=== PATIENT | male | born 1985 | race Caucasian/White ===

== ENCOUNTER → 2019-02-04 09:26 | Outpatient (CLI) | payer OTHER, SELFPAY ==
--- NOTE | 2019-02-04 | DI.RAD.S_ITS ---
PROCEDURE: XR LUMBAR SPINE 2-3V INDICATIONS: LOW BACK PAIN TECHNIQUE: 2 views of the lumbar spine were acquired. COMPARISON: None. FINDINGS: Bones: No fracture or focal osseous destruction. Multilevel degenerative endplate sclerosis and spurring. Diffuse facet arthropathy. Mild narrowing of the L1-L2, L4-L5 and L5-S1 disc spaces. Mild bilateral hip degeneration. Soft tissues: Overlying bowel gas pattern is normal. No suspicious soft tissue calcifications. IMPRESSION: Mild multilevel lumbar disc degeneration and facet arthropathy as above. No fracture Dictated by: Thomas Hall M.D. on 02/04/2019 at 11:06 Approved by: Thomas Hall M.D. on 02/04/2019 at 11:07
== END ==
PROVIDERS: PCP Family Medicine; Visit Provider Chiropractor
DX: M54.5 Low back pain (principal); M51.36 Other intervertebral disc degeneration, lumbar region; M47.816 Spondylosis without myelopathy or radiculopathy, lumbar region; M48.061 Spinal stenosis, lumbar region without neurogenic claudication; M48.07 Spinal stenosis, lumbosacral region; M16.0 Bilateral primary osteoarthritis of hip
CPT/HCPCS: 72100

== ENCOUNTER → 2019-02-18 14:06 | Outpatient (CLI) | payer OTHER, SELFPAY ==
[2019-02-18 14:28] LABS: Hematocrit 41.1 % (41-53); Hemoglobin 14.3 g/dL (13.5-17.5); Mean Corpuscular HGB Conc 34.8 % (30-36); Mean Corpuscular Hemoglobin 31.1 PG (26-34); Mean Corpuscular Volume 89.4 fL (80-100); Platelet Count 214 X10^3/uL (150-400); Red Cell Distribution Width 13.1 % (11.6-14.8); White Blood Cell Count 7.6 X10^3/uL (4.5-11.0)
[2019-02-18 14:45] LABS: Alanine Aminotransferase 28 IU/L (21-72); Albumin 4.8 g/dL (3.5-5.0); Albumin Globulin Ratio 1.7 (1.0-2.8); Alkaline Phosphatase 77 U/L (38-126); Aspartate Aminotransferase 35 IU/L (17-59); BUN Creatinine Ratio 12.7 (6-22); Bilirubin Total 0.5 mg/dL (0.2-1.3); Blood Urea Nitrogen 14 mg/dL (9-20); Calcium 9.8 mg/dL (8.4-10.2); Carbon Dioxide 29 mmol/L (22-32); Chloride 100 mmol/L (98-107); Estimated Glomerular Filt Rate > 60.0 mL/min (>60); Globulin 2.8 g/dL (1.7-4.1); Glucose 96 mg/dL (70-100); HEMOLYSIS < 15 (0-50); Sodium 139 mmol/L (137-145); Total Protein 7.6 g/dL (6.3-8.2)
== END ==
PROVIDERS: PCP Family Medicine; Visit Provider Nurse Practitioner Family
DX: Z00.00 Encounter for general adult medical examination without abnormal findings (principal)
CPT/HCPCS: 36415; 80053; 85027

== ENCOUNTER 2019-05-09 19:45 | Emergency (ER) | payer OTHER, SELFPAY ==
[2019-05-09 19:48] VITALS: BP 145/80; PULSE 90; RESP 18; TEMP 36.3; O2SAT 97; BMI 27.1
--- NOTE | 2019-05-09 19:51 | DI.RAD.S_ITS ---
PROCEDURE: XR TIBIA FIBULA RT 2V INDICATIONS: Fall TECHNIQUE: 2 views of the tibia and fibula were acquired. COMPARISON: None. FINDINGS: Bones: No fractures or dislocations. No suspicious bony lesions. Soft tissues: No suspicious soft tissue calcifications or masses. IMPRESSION: No fractures. Dictated by: Estela Barcenas M.D. on 05/09/2019 at 20:13 Approved by: Estela Barcenas M.D. on 05/09/2019 at 20:14
--- NOTE | 2019-05-09 20:23 | DI.RAD.S_ITS ---
PROCEDURE: XR HAND LT MIN 3V INDICATIONS: L hand/wrist pain on the base of 5th finger TECHNIQUE: 3 views of the hand(s) acquired. COMPARISON: None. FINDINGS: Bones: No fractures or dislocations. Carpal bones are normally aligned. No suspicious bony lesions. Soft tissues: No suspicious soft tissue calcifications. IMPRESSION: No fracture or dislocation. Dictated by: Estela Barcenas M.D. on 05/09/2019 at 21:24 Approved by: Estela Barcenas M.D. on 05/09/2019 at 21:25
--- NOTE | 2019-05-09 20:27 | ED.FALL ---
HPI - Fall <Christiano Boswelljessika [facility] - Last Filed: 05/09/19 21:45> General Chief Complaint: Fall Stated Complaint: LEFT LEG LACERATION Time Seen by Provider: 05/09/19 19:50 Source: patient Mode of arrival: ambulatory Limitations: no limitations History of Present Illness HPI Narrative: This is a 33-year-old and an [employer], nonsmoker, who had injured during work prior coming in to ED. He reports was chasing a suspect and fell over a mcbride and landed onto of her on his left fiore. He reports left fiore pain, left palm pain with abrasion. He reports had neck strain and discomfort this morning from lifting weight and now is worse after the fall. He denies tingling or numbness to upper extremities. He is able to bear his weight and ambulatory. He is not sure of last tetanus immunization. Related Data Previous Rx's Medication Instructions Recorded famotidine 20 mg tablet 20 mg PO BEDTIME #60 tab 01/11/19 naproxen 500 mg tablet 500 mg PO BID PRN #60 tab 01/11/19 Allergies Allergy/AdvReac Type Severity Reaction Status Date / Time No Known Drug Allergies Allergy Verified 05/09/19 19:47 Review of Systems <Christiano AshrafAdarshjessika [facility] Last Filed: 05/09/19 21:45> Review of Systems General: Denies fever, chills, fatigue, malaise, sweats. HEENT: Denies sinus pain, ear pain, sore throat, difficulty swallowing, dizziness. Reports neck muscle pain. Respiratory: Denies dyspnea, cough, wheezing, hemoptysis, sputum. Cardiovascular: Denies chest pain, palpitations, orthopnea, edema. Gastrointestinal: Denies nausea, vomiting, abdominal pain, diarrhea, constipation, melena. : Denies dysuria, frequency, incontinence, hematuria, urinary retention. Musculoskeletal: See HPI Skin: See HPI Neurologic: Denies weakness, headache, numbness, change in speech, confusion, seizures, incoordination. Psychiatric: No concerning psychosocial issues. 12-point review of systems is negative except for those stated above. Exam <Christiano Ashraf-Adarshjessika [facility] Last Filed: 05/09/19 21:45> Narrative Exam Narrative: GEN: Alert, oriented x 3, well appearing and nourished, and in no acute distress. Head: Normal cephalic, atraumatic. No scalp or temporal tenderness, palpable mass or rash. EYES: Pupils are equal, round, and reactive to light and accommodation. Extraocular muscles are intact bilaterally. There is no subconjunctival hemorrhage, exudate and sclera non-icteric. ENT: Nose without bleeding, purulent discharge. Mucous membrane moist, airway patent. Neck: Trachea in midline. No JVD. Supple and no meningeal signs. Reports pain with active ROM such as flexion, extension, rotation. CARDIAC: No peripheral edema, cyanosis or pallor. Capillary refill is less than 2 seconds. RESPIRATORY: No cough, wheezes. No stridor, respiratory distress, increase work of breathing, or accessary muscle used. ABD: No-obese, non-distended. EXT: Full painless ROM of all extremities with no loss of sensation, strength, effusion. L dorado aspect of base of 5th metacarpal region with ecchymosis and mild edema. SKIN: 10 cm, linear superficial abrasion on L fiore. L dorado base of 5th metacarpal with small superfical abrasion. Warm, dry, normal color for patient. NEUROLOGICAL: Alert and oriented to place, time and person. Sensation and motor function intact bilaterally. No facial droops, dysphasia. PSYCHIATRIC: Good judgement and reason, without hallucinations, abnormal affect or abnormal behaviors during the examination. Initial Vital Signs Initial Vital Signs: Vital Signs Temperature 97.4 F L 05/09/19 19:48 Pulse Rate 90 05/09/19 19:48 Respiratory Rate 18 05/09/19 19:48 Blood Pressure 145/80 H 05/09/19 19:48 Pulse Oximetry 97 05/09/19 19:48 <Femi Brothers DO - Last Filed: 05/10/19 06:00> Initial Vital Signs Initial Vital Signs: Vital Signs Temperature 97.4 F L 05/09/19 19:48 Pulse Rate 90 05/09/19 19:48 Respiratory Rate 18 05/09/19 19:48 Blood Pressure 145/80 H 05/09/19 19:48 Pulse Oximetry 97 05/09/19 19:48 PFS <GERARDO Waldron - Last Filed: 05/09/19 21:45> Medical History Back problem (Chronic ~2007) Chronic back pain (Chronic ~2007) Eczema (Chronic ~2007) Hay fever (Chronic ~1989) Hearing loss (Chronic ~2009) Herniated disc (Chronic ~2007) Plantar warts (Chronic ~2009) Tinnitus (Chronic ~2009) Vision disorder (Chronic) Chicken pox (Resolved ~1986) Surgical History History of vasectomy (Resolved ~08/2015) Family History (Updated 03/05/19 @ 21:39 by Dianna Ingram) Father Mental health problem Grandfather Prostate cancer Family/Other Mental health problem Social History Smoking Status: Never smoker second hand exposure: Yes alcohol intake: current (1-2 beers a day) substance use type: does not use Family History Father Mental health problem Grandfather Prostate cancer Family/Other Mental health problem Social History Smoking Status: Never smoker second hand exposure: Yes alcohol intake: current (1-2 beers a day) substance use type: does not use Scores <GERARDO Waldron - Last Filed: 05/09/19 21:45> Nexus Score for C-Spine Focal Neurologic deficit present: No Midline spinal tenderness present: No Altered level of conciousness present: No Intoxication present: No Distracting Injury Present: Yes (L fiore abrasion and L palm contusion) Nexus Criteria for C-spine: 1 Course <GERARDO Waldron - Last Filed: 05/09/19 21:45> Orders Ordered: Discontinued Medications Bacitracin (Bacitracin) 1 applic TOP NOW ONE Stop: 05/09/19 20:26 Last Admin: 05/09/19 20:39 Dose: 1 applic Diphtheria/Tetanus/Acell Pertussis (Adacel) 0.5 ml IM .ONCE ONE Stop: 05/09/19 20:26 Last Admin: 05/09/19 20:38 Dose: 0.5 ml Vital Signs - 8 hr 05/09/19 19:48 Temperature 97.4 F L Pulse Rate 90 Respiratory Rate 18 Blood Pressure 145/80 H Pulse Oximetry 97 <Femi Brothers DO - Last Filed: 05/10/19 06:00> Orders Ordered: Discontinued Medications Bacitracin (Bacitracin) 1 applic TOP NOW ONE Stop: 05/09/19 20:26 Last Admin: 05/09/19 20:39 Dose: 1 applic Diphtheria/Tetanus/Acell Pertussis (Adacel) 0.5 ml IM .ONCE ONE Stop: 05/09/19 20:26 Last Admin: 05/09/19 20:38 Dose: 0.5 ml Vital Signs - 8 hr 05/09/19 19:48 Temperature 97.4 F L Pulse Rate 90 Respiratory Rate 18 Blood Pressure 145/80 H Pulse Oximetry 97 MDM - Fall <GERARDO Waldron - Last Filed: 05/09/19 21:45> Differential Diagnosis Likely other (Abrasion on left palm, abrasion on left lower extremity, contusion on left palm, cervical strain, fracture on left hand, fracture of left lower extremity) Medical Records Attestation: I reviewed the patient's medical records. Imaging Data XR-tib/fib L side: Radiologist's impression: [place] [address] XRay Report Signed Patient: Alex Calloway JMR#: [id number] : 1985Acct:[id number] Age/Sex: 33 / MDate of Service: 05/09/19 Loc: ED Accession Number: [id number] Procedure: XR tibia fibula LT 2V Ordering Provider: Femi Brothers D.O. PROCEDURE: XR TIBIA FIBULA RT 2V INDICATIONS: Fall TECHNIQUE: 2 views of the tibia and fibula were acquired. COMPARISON: None. FINDINGS: Bones: No fractures or dislocations. No suspicious bony lesions. Soft tissues: No suspicious soft tissue calcifications or masses. IMPRESSION: No fractures. Dictated by: Estela Barcenas M.D. on 05/09/2019 at 20:13 Approved by: Estela Barcenas M.D. on 05/09/2019 at 20:14 XR-hand L: Radiologist's impression: 10 GERARDO Waldron Find Patient Imaging BrodieAlex Castro 33 M 1985 ACTIVITY DATE EXAM STATUS AUTHOR 08/05/19 20:23 Signed Joana Barcenas 05/09/19 19:51 Signed Swapna,[address] [address] XRay Report Signed Patient: Alex Calloway JMR#: [id number] : 1985Acct:[id number] Age/Sex: 33 / MDate of Service: 05/09/19 Loc: ED Accession Number: [id number] Procedure: XR hand LT min 3V Ordering Provider: Christiano Jones PROCEDURE: XR HAND LT MIN 3V INDICATIONS: L hand/wrist pain on the base of 5th finger TECHNIQUE: 3 views of the hand(s) acquired. COMPARISON: None. FINDINGS: Bones: No fractures or dislocations. Carpal bones are normally aligned. No suspicious bony lesions. Soft tissues: No suspicious soft tissue calcifications. IMPRESSION: No fracture or dislocation. Dictated by: Estela Barcenas M.D. on 05/09/2019 at 21:24 Approved by: Estela Barcenas M.D. 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 He reports he was chasing a suspect, fell over a mcbride and onto a curb of the parking lot and landed on his left lower extremity and left palm. There was a long, 10 cm, superficial abrasion left fiore and small contusion and abrasion of left palm on the base of 5th metacarpal. He denies any other injuries and denies pain in the knee, ankle, hip, head. The wound was cleaned with water and Hibiclens. Dressed with bacitracin and gauze. Tdap vaccination was updated since the patient was unable to recall and his immunization record was not available in electronic medical record. X-ray was obtained on left tib-fib and left hand. There was no fracture, dislocation or bony lesions in left tib-fib. No fractures or dislocations were noted on left hand x-ray. The patient will follow up with his primary care provider MONICA Lares and he has an appointment. The patient will be released with the light duty for the day and he will be working regular duty from 05/10/19. The patient was advised to use RICE therapy and take [id number] Tylenol and/or Motrin for pain and inflammation as needed. Patient has no further questions at this time and agrees with treatment plan. Discharge Plan Departure Patient Disposition: Home Clinical Impression: Abrasion Contusion Qualifiers: Encounter type: initial encounter Contusion area: hand Laterality: left Qualified Code(s): S60.222A - Contusion of left hand, initial encounter Cervical strain Qualifiers: Encounter type: initial encounter Qualified Code(s): S16.1XXA - Strain of muscle, fascia and tendon at neck level, initial encounter Discharge Date/Time: 05/09/19 21:50 Interventions: ED Discharge Assessment Last Done: 05/09/19 21:49 Instructions: DI for Contusion, DI for Cervical Muscle Strain, DI for Abrasion Activity Restrictions/Additional Instructions: You have been diagnosed with [contusion and abrasion on left lower leg and left hand, cervical strain. There was no fracture, dislocation, acute findings in left lower leg or left hand] What to do: *Take your medications as directed. Please use [id number] Tylenol and/or Motrin as needed for pain and inflammation. Please use ice pack on contused area for pain and swelling. *Follow up with your primary care provider in 2-3 days, call for an appointment. Let them know you were seen in the ED and that we asked you to be seen in follow up. *Return to ED if you have any new, worsening, or concerning symptoms, such as [worsening pain, redness, swelling, tingling/numbness/weakness to extremities, prolonged discharge, warm to touch or fever or any other acute concerns. Prescriptions: No Action naproxen 500 mg tablet 500 mg PO BID PRN (Reason: pain) Qty: 60 RF: 1 famotidine 20 mg tablet 20 mg PO BEDTIME Qty: 60 RF: 1 Referrals: Zeeshan Lares ARNP [[employer]] - <Femi Brothers DO - Last Filed: 05/10/19 06:00> [facility] Attestation: I was immediately available in the department for consultation. Documentation has been reviewed. I agree with assessment and plan.
--- NOTE | 2019-05-09 20:31 | ED_ITS ---
HPI - Fall <Christiano Boswelljessika [facility] - Last Filed: 05/09/19 21:45> General Chief Complaint: Fall Stated Complaint: LEFT LEG LACERATION Time Seen by Provider: 05/09/19 19:50 Source: patient Mode of arrival: ambulatory Limitations: no limitations History of Present Illness HPI Narrative: This is a 33-year-old and an [employer], nonsmoker, who had injured during work prior coming in to ED. He reports was chasing a suspect and fell over a mcbride and landed onto of her on his left fiore. He reports left fiore pain, left palm pain with abrasion. He reports had neck strain and discomfort this morning from lifting weight and now is worse after the fall. He denies tingling or numbness to upper extremities. He is able to bear his weight and ambulatory. He is not sure of last tetanus immunization. Related Data Previous Rx's Medication Instructions Recorded famotidine 20 mg tablet 20 mg PO BEDTIME #60 tab 01/11/19 naproxen 500 mg tablet 500 mg PO BID PRN #60 tab 01/11/19 Allergies Allergy/AdvReac Type Severity Reaction Status Date / Time No Known Drug Allergies Allergy Verified 05/09/19 19:47 Review of Systems <Christiano AshrafAdarshjessika [facility] Last Filed: 05/09/19 21:45> Review of Systems General: Denies fever, chills, fatigue, malaise, sweats. HEENT: Denies sinus pain, ear pain, sore throat, difficulty swallowing, dizziness. Reports neck muscle pain. Respiratory: Denies dyspnea, cough, wheezing, hemoptysis, sputum. Cardiovascular: Denies chest pain, palpitations, orthopnea, edema. Gastrointestinal: Denies nausea, vomiting, abdominal pain, diarrhea, constipation, melena. : Denies dysuria, frequency, incontinence, hematuria, urinary retention. Musculoskeletal: See HPI Skin: See HPI Neurologic: Denies weakness, headache, numbness, change in speech, confusion, seizures, incoordination. Psychiatric: No concerning psychosocial issues. 12-point review of systems is negative except for those stated above. Exam <Christiano Ashraf-Adarshjessika [facility] Last Filed: 05/09/19 21:45> Narrative Exam Narrative: GEN: Alert, oriented x 3, well appearing and nourished, and in no acute distress. Head: Normal cephalic, atraumatic. No scalp or temporal tenderness, palpable mass or rash. EYES: Pupils are equal, round, and reactive to light and accommodation. Extraocular muscles are intact bilaterally. There is no subconjunctival hemorrhage, exudate and sclera non-icteric. ENT: Nose without bleeding, purulent discharge. Mucous membrane moist, airway patent. Neck: Trachea in midline. No JVD. Supple and no meningeal signs. Reports pain with active ROM such as flexion, extension, rotation. CARDIAC: No peripheral edema, cyanosis or pallor. Capillary refill is less than 2 seconds. RESPIRATORY: No cough, wheezes. No stridor, respiratory distress, increase work of breathing, or accessary muscle used. ABD: No-obese, non-distended. EXT: Full painless ROM of all extremities with no loss of sensation, strength, effusion. L dorado aspect of base of 5th metacarpal region with ecchymosis and mild edema. SKIN: 10 cm, linear superficial abrasion on L fiore. L dorado base of 5th metacarpal with small superfical abrasion. Warm, dry, normal color for patient. NEUROLOGICAL: Alert and oriented to place, time and person. Sensation and motor function intact bilaterally. No facial droops, dysphasia. PSYCHIATRIC: Good judgement and reason, without hallucinations, abnormal affect or abnormal behaviors during the examination. Initial Vital Signs Initial Vital Signs: Vital Signs Temperature 97.4 F L 05/09/19 19:48 Pulse Rate 90 05/09/19 19:48 Respiratory Rate 18 05/09/19 19:48 Blood Pressure 145/80 H 05/09/19 19:48 Pulse Oximetry 97 05/09/19 19:48 <Femi Brothers DO - Last Filed: 05/10/19 06:00> Initial Vital Signs Initial Vital Signs: Vital Signs Temperature 97.4 F L 05/09/19 19:48 Pulse Rate 90 05/09/19 19:48 Respiratory Rate 18 05/09/19 19:48 Blood Pressure 145/80 H 05/09/19 19:48 Pulse Oximetry 97 05/09/19 19:48 PFS <GERARDO Waldron - Last Filed: 05/09/19 21:45> Medical History Back problem (Chronic ~2007) Chronic back pain (Chronic ~2007) Eczema (Chronic ~2007) Hay fever (Chronic ~1989) Hearing loss (Chronic ~2009) Herniated disc (Chronic ~2007) Plantar warts (Chronic ~2009) Tinnitus (Chronic ~2009) Vision disorder (Chronic) Chicken pox (Resolved ~1986) Surgical History History of vasectomy (Resolved ~08/2015) Family History (Updated 03/05/19 @ 21:39 by Dianna Ingram) Father Mental health problem Grandfather Prostate cancer Family/Other Mental health problem Social History Smoking Status: Never smoker second hand exposure: Yes alcohol intake: current (1-2 beers a day) substance use type: does not use Family History Father Mental health problem Grandfather Prostate cancer Family/Other Mental health problem Social History Smoking Status: Never smoker second hand exposure: Yes alcohol intake: current (1-2 beers a day) substance use type: does not use Scores <GERARDO Waldron - Last Filed: 05/09/19 21:45> Nexus Score for C-Spine Focal Neurologic deficit present: No Midline spinal tenderness present: No Altered level of conciousness present: No Intoxication present: No Distracting Injury Present: Yes (L fiore abrasion and L palm contusion) Nexus Criteria for C-spine: 1 Course <GERARDO Waldron - Last Filed: 05/09/19 21:45> Orders Ordered: Discontinued Medications Bacitracin (Bacitracin) 1 applic TOP NOW ONE Stop: 05/09/19 20:26 Last Admin: 05/09/19 20:39 Dose: 1 applic Diphtheria/Tetanus/Acell Pertussis (Adacel) 0.5 ml IM .ONCE ONE Stop: 05/09/19 20:26 Last Admin: 05/09/19 20:38 Dose: 0.5 ml Vital Signs - 8 hr 05/09/19 19:48 Temperature 97.4 F L Pulse Rate 90 Respiratory Rate 18 Blood Pressure 145/80 H Pulse Oximetry 97 <Femi Brothers DO - Last Filed: 05/10/19 06:00> Orders Ordered: Discontinued Medications Bacitracin (Bacitracin) 1 applic TOP NOW ONE Stop: 05/09/19 20:26 Last Admin: 05/09/19 20:39 Dose: 1 applic Diphtheria/Tetanus/Acell Pertussis (Adacel) 0.5 ml IM .ONCE ONE Stop: 05/09/19 20:26 Last Admin: 05/09/19 20:38 Dose: 0.5 ml Vital Signs - 8 hr 05/09/19 19:48 Temperature 97.4 F L Pulse Rate 90 Respiratory Rate 18 Blood Pressure 145/80 H Pulse Oximetry 97 MDM - Fall <GERARDO Waldron - Last Filed: 05/09/19 21:45> Differential Diagnosis Likely other (Abrasion on left palm, abrasion on left lower extremity, contusion on left palm, cervical strain, fracture on left hand, fracture of left lower extremity) Medical Records Attestation: I reviewed the patient's medical records. Imaging Data XR-tib/fib L side: Radiologist's impression: [place] [address] XRay Report Signed Patient: Alex Calloway JMR#: [id number] : 1985Acct:[id number] Age/Sex: 33 / MDate of Service: 05/09/19 Loc: ED Accession Number: [id number] Procedure: XR tibia fibula LT 2V Ordering Provider: Femi Brothers D.O. PROCEDURE: XR TIBIA FIBULA RT 2V INDICATIONS: Fall TECHNIQUE: 2 views of the tibia and fibula were acquired. COMPARISON: None. FINDINGS: Bones: No fractures or dislocations. No suspicious bony lesions. Soft tissues: No suspicious soft tissue calcifications or masses. IMPRESSION: No fractures. Dictated by: Estela Barcenas M.D. on 05/09/2019 at 20:13 Approved by: Estela Barcenas M.D. on 05/09/2019 at 20:14 XR-hand L: Radiologist's impression: 10 GERARDO Waldron Find Patient Imaging BrodieAlex Castro 33 M 1985 ACTIVITY DATE EXAM STATUS AUTHOR 08/05/19 20:23 Signed Joana Barcenas 05/09/19 19:51 Signed Swapna,[address] [address] XRay Report Signed Patient: Alex Calloway JMR#: [id number] : 1985Acct:[id number] Age/Sex: 33 / MDate of Service: 05/09/19 Loc: ED Accession Number: [id number] Procedure: XR hand LT min 3V Ordering Provider: Christiano Jones PROCEDURE: XR HAND LT MIN 3V INDICATIONS: L hand/wrist pain on the base of 5th finger TECHNIQUE: 3 views of the hand(s) acquired. COMPARISON: None. FINDINGS: Bones: No fractures or dislocations. Carpal bones are normally aligned. No suspicious bony lesions. Soft tissues: No suspicious soft tissue calcifications. IMPRESSION: No fracture or dislocation. Dictated by: Estela Barcenas M.D. on 05/09/2019 at 21:24 Approved by: Estela Barcenas M.D. 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 He reports he was chasing a suspect, fell over a mcbride and onto a curb of the parking lot and landed on his left lower extremity and left palm. There was a long, 10 cm, superficial abrasion left fiore and small contusion and abrasion of left palm on the base of 5th metacarpal. He denies any other injuries and denies pain in the knee, ankle, hip, head. The wound was cleaned with water and Hibiclens. Dressed with bacitracin and gauze. Tdap vaccination was updated since the patient was unable to recall and his immunization record was not available in electronic medical record. X-ray was obtained on left tib-fib and left hand. There was no fracture, dislocation or bony lesions in left tib-fib. No fractures or dislocations were noted on left hand x-ray. The patient will follow up with his primary care provider MONICA Lares and he has an appointment. The patient will be released with the light duty for the day and he will be working regular duty from 05/10/19. The patient was advised to use RICE therapy and take [id number] Tylenol and/or Motrin for pain and inflammation as needed. Patient has no further questions at this time and agrees with treatment plan. Discharge Plan Departure Patient Disposition: Home Clinical Impression: Abrasion Contusion Qualifiers: Encounter type: initial encounter Contusion area: hand Laterality: left Qualified Code(s): S60.222A - Contusion of left hand, initial encounter Cervical strain Qualifiers: Encounter type: initial encounter Qualified Code(s): S16.1XXA - Strain of muscle, fascia and tendon at neck level, initial encounter Discharge Date/Time: 05/09/19 21:50 Interventions: ED Discharge Assessment Last Done: 05/09/19 21:49 Instructions: DI for Contusion, DI for Cervical Muscle Strain, DI for Abrasion Activity Restrictions/Additional Instructions: You have been diagnosed with [contusion and abrasion on left lower leg and left hand, cervical strain. There was no fracture, dislocation, acute findings in left lower leg or left hand] What to do: *Take your medications as directed. Please use [id number] Tylenol and/or Motrin as needed for pain and inflammation. Please use ice pack on contused area for pain and swelling. *Follow up with your primary care provider in 2-3 days, call for an appointment. Let them know you were seen in the ED and that we asked you to be seen in follow up. *Return to ED if you have any new, worsening, or concerning symptoms, such as [worsening pain, redness, swelling, tingling/numbness/weakness to extremities, prolonged discharge, warm to touch or fever or any other acute concerns. Prescriptions: No Action naproxen 500 mg tablet 500 mg PO BID PRN (Reason: pain) Qty: 60 RF: 1 famotidine 20 mg tablet 20 mg PO BEDTIME Qty: 60 RF: 1 Referrals: Zeeshan Lares ARNP [[employer]] - <Femi Brothers DO - Last Filed: 05/10/19 06:00> [facility] Attestation: I was immediately available in the department for consultation. Documentation has been reviewed. I agree with assessment and plan.
[2019-05-09] MEDS: TET,DIPH,PERTUSS(ACELL),VAC/PF 0.5 ML SYRINGE IM (20:38)
[2019-05-09] MEDS: BACITRACIN OINT 0.9 GM PCKT 1 APPLIC TOP (20:39)
--- NOTE | 2019-05-09 20:51 | PC.NURSE ---
wounds cleansed leg and hand, right side/ telfa and kerlex on leg post bactitracin, and l hand cleansed and bacitrain and bandaide applied
== END 2019-05-09 21:50 | disposition home or self-care (01) ==
PROVIDERS: Emergency Provider Nurse Practitioner Family; PCP Family Medicine
DX: S80.812A Abrasion, left lower leg, initial encounter (principal); S60.222A Contusion of left hand, initial encounter; S16.1XXA Strain of muscle, fascia and tendon at neck level, initial encounter; W01.0XXA Fall on same level from slipping, tripping and stumbling without subsequent striking against object, initial encounter; Y99.0 Civilian activity done for income or pay; Z23 Encounter for immunization
CPT/HCPCS: 73130; 73590; 90471; 99283; 90715

== ENCOUNTER → 2019-07-07 14:45 | Outpatient (CLI) | payer OTHER, SELFPAY | PROVIDERS: PCP Family Medicine | DX: Z23 Encounter for immunization (principal) | CPT/HCPCS: 90471; 90686 ==

== ENCOUNTER 2020-02-11 19:17 | Emergency (ER) | payer OTHER, SELFPAY ==
[2020-02-11 19:20] VITALS: BP 145/80; PULSE 99; RESP 22; TEMP 36.9; O2SAT 99
--- NOTE | 2020-02-11 19:22 | DI.CT.S_ITS ---
PROCEDURE: CT HEAD/BRAIN WO CON INDICATIONS: fall head injury TECHNIQUE: Noncontrast 4.5 mm thick angled axial sections acquired from the foramen magnum to the vertex, with coronal and sagittal reformats. For radiation dose reduction, the following was used: automated exposure control, adjustment of mA and/or kV according to patient size. COMPARISON: None. FINDINGS: Image quality: Excellent. CSF spaces: Basal cisterns are patent. No extra-axial fluid collections. Ventricles are normal in size and shape. Brain: No midline shift. No intracranial masses or hemorrhage. Kelly-white matter interface is normal. Skull and face: There is a small right parietal subgaleal hematoma. Calvarium and visualized facial bones are intact, without suspicious lesions. Sinuses: Visualized sinuses and mastoids are clear. IMPRESSION: 1. No acute intracranial findings. 2. Small right parietal subgaleal hematoma without underlying calvarial abnormality. Dictated by: Marielle Martinez M.D. on 02/11/2020 at 20:10 Approved by: Marielle Martinez M.D. on 02/11/2020 at 20:13
--- NOTE | 2020-02-11 19:22 | DI.RAD.S_ITS ---
PROCEDURE: XR SHOULDER RT MIN 2V INDICATIONS: fall with shoulder pain TECHNIQUE: 2 views of the shoulder were acquired. COMPARISON: None. FINDINGS: Bones: There is widening of the acromioclavicular joint suggesting separation. No other fracture or dislocation visualized. Soft tissues: No suspicious soft tissue calcifications. IMPRESSION: Probable separation of the acromioclavicular joint. Dedicated clavicular views can be used to further characterize findings as clinically indicated. Dictated by: Marielle Martinez M.D. on 02/11/2020 at 20:09 Approved by: Marielle Martinez M.D. on 02/11/2020 at 20:10
--- NOTE | 2020-02-11 19:23 | DI.CT.S_ITS ---
PROCEDURE: CT CERVICAL SPINE WO CON INDICATIONS: fall with head/neck pain TECHNIQUE: Noncontrast 3 mm thick sections acquired from the skull base to the T4 level. Sagittal and coronal reformats were then constructed. For radiation dose reduction, the following was used: automated exposure control, adjustment of mA and/or kV according to patient size. COMPARISON: None. FINDINGS: Image quality: Excellent. Bones: No fractures or dislocations. Visualized superior ribs are intact. Soft tissues: Prevertebral soft tissues are normal in thickness. No paravertebral hematomas. No apical pneumothoraces. IMPRESSION: No acute cervical spine injury. Dictated by: Marielle Martinez M.D. on 02/11/2020 at 20:13 Approved by: Marielle Martinez M.D. on 02/11/2020 at 20:14
--- NOTE | 2020-02-11 19:36 | ED.TRAUMA ---
HPI - Trauma General Chief Complaint: Trauma Stated Complaint: Possible broken right shoulder Time Seen by Provider: 02/11/20 19:22 Source: patient Mode of arrival: Ambulatory Limitations: no limitations History of Present Illness HPI narrative: 34-year-old male nonsmoker with noncontributory medical history presents with a chief complaint of head neck and right shoulder injury after falling wall chasing another person. 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 He denies any loss of consciousness, nausea or vomiting. He does have some neck pain but primary complaint is of significant pain to right shoulder particularly with any range of motion. He is not using alcohol or street drugs. He does not take any blood thinners. He has full recall of the event. MD complaint: fall and injury Onset (ago): minute(s) Loss of Consciousness: no Location: head and neck Location - Extremities: Right: shoulder Severity: severe Context: fall Related Data Home Medications Medication Instructions Recorded Confirmed ibuprofen 200 mg tablet 600 mg PO BID PRN tab 05/10/19 01/20/20 Previous Rx's Medication Instructions Recorded naproxen 500 mg tablet 500 mg PO BID PRN #60 tab 01/11/19 amoxicillin 875 mg-potassium 1 tab PO BID #10 tab 01/20/20 clavulanate 125 mg tablet hydrocodone-acetaminophen 1 tab PO Q4-6H PRN #10 tab 02/11/20 ketorolac 10 mg PO Q6H PRN #14 tab 02/11/20 Allergies Allergy/AdvReac Type Severity Reaction Status Date / Time No Known Drug Allergies Allergy Verified 01/20/20 15:19 Review of Systems Constitutional Constitutional: Denies chills, Denies fatigue, Denies fever(s), Denies frequent falls, Denies lethargy and Denies weakness Eyes Eyes: Denies change in vision, Denies eye discharge, Denies irritation and Denies loss of vision ENT Ears, Nose, Mouth, and Throat: Denies change in voice, Denies dizziness, Reports neck pain, Denies sore throat and Denies throat swelling Cardiovascular Cardiovascular: Denies chest pain, Denies irregular heart rhythm, Denies lightheadedness, Denies palpitations, Denies dyspnea, Denies dyspnea on exertion and Denies orthopnea Respiratory Respiratory: Denies cough, Denies dyspnea, Denies dyspnea on exertion and Denies wheezing Gastrointestinal Gastrointestinal: Denies abdominal pain, Denies change in bowel habits, Denies diarrhea, Denies nausea and Denies vomiting Genitourinary Genitourinary: Denies hematuria, Denies flank pain, Denies urinary incontinence and Denies urinary urgency Musculoskeletal Musculoskeletal: Denies back pain, Reports joint swelling, Reports limited range of motion, Denies muscle weakness, Reports neck pain, Denies numbness, Reports radiating pain into limb and Denies tingling Integumentary/Breasts Skin/Breast: Denies pruritus, Denies erythema, Denies rash and Denies wounds Neurologic Neurologic: Denies behavioral changes, Denies confusion, Denies dizziness, Denies frequent falls, Denies loss of vision, Denies numbness, Denies tingling and Denies weakness Psychiatric Psychiatric: Denies anxiety, Denies behavioral changes, Denies confusion, Denies depression, Denies homicidal ideation and Denies suicidal ideation Endocrine Endocrine: Denies fatigue, Denies flushing and Denies palpitations Hematologic/Lymphatic Hematologic/Lymphatic: Denies easy bruising Allergic/Immunologic Allergic/Immunologic: Denies urticaria, Denies throat swelling and Denies wheezing Patient History Medical History Back problem (Chronic ~2007) Chicken pox (Resolved ~1986) Chronic back pain (Chronic ~2007) Eczema (Chronic ~2007) Hay fever (Chronic ~1989) Hearing loss (Chronic ~2009) Herniated disc (Chronic ~2007) Lesion of right external auditory canal (Acute) Plantar warts (Chronic ~2009) Tinnitus (Chronic ~2009) Vision disorder (Chronic) Surgical History History of vasectomy (Resolved ~08/2015) Family History Father Mental health problem Grandfather Prostate cancer Family/Other Mental health problem Social History Smoking Status: Never smoker second hand exposure: Yes alcohol intake: current substance use type: does not use Smoking Status: Never smoker Substance Use Type: does not use Exam Narrative Exam Narrative: GENERAL: [34] year old patient appears stated age. Well-nourished, well-developed patient, in moderate distress, obviously in pain, splinting his right shoulder HEAD: R parietal scalp hematoma, no depressed fractures or other obvious findings EYES: Pupils equal round and reactive. Extraocular motions intact. No scleral icterus. No injection or drainage. ENT: Nose without bleeding, purulent drainage. Throat without erythema, tonsillar hypertrophy or exudate. Airway patent. NECK: Trachea midline. Mild upper midline neck pain, no step-off or crepitance CARDIOVASCULAR: Regular rate and rhythm without murmurs, gallops, or rubs. RESPIRATORY: Clear to auscultation. Breath sounds equal bilaterally. No wheezes, rales, or rhonchi. GASTROINTESTINAL: Abdomen soft, non-tender, nondistended. EXTREMITIES: Significant pain to right shoulder with some alteration in typical landmarks. Closed, isolated neurovascularly intact BACK: Nontender without deformity or crepitance. No flank tenderness. NEURO: AOx3. SKIN: No rash or erythema of visible areas Initial Vital Signs Initial Vital Signs: Vital Signs Temperature 98.4 F 02/11/20 19:20 Pulse Rate 99 H 02/11/20 19:20 Respiratory Rate 22 02/11/20 19:20 Blood Pressure 145/80 H 02/11/20 19:20 Pulse Oximetry 99 02/11/20 19:20 Procedures Orthopedic Splinting/Casting Injury #1: Side: right Upper Extremity Injury Location: shoulder Upper Extremity Immobilizer: sling/shoulder immobilizer Post splinting neuro exam: intact Post splinting vascular exam: intact Placed by: Nursing Scores GCS [place] coma scale eye opening: Spontaneous [place] coma scale verbal response: Orientated [place] coma scale motor response: Obey commands [place] coma scale total score: 15 Course Course Course Narrative: L&I form completed and submitted to Medical Records 02/11/2020 @ 2046 Orders Ordered: ED Orders 02/11/20 19:22 CT head/brain wo con Stat XR shoulder RT min 2V Stat 02/11/20 19:23 CT cervical spine wo con Stat Discontinued Medications Hydromorphone HCl (Dilaudid) 1 mg IV NOW ONE Stop: 02/11/20 19:58 Last Admin: 02/11/20 20:10 Dose: 1 mg Documented by: ROGERS Ketorolac Tromethamine (Toradol) 15 mg IV NOW ONE Stop: 02/11/20 19:58 Last Admin: 02/11/20 20:10 Dose: 15 mg Documented by: ROGERS Ondansetron HCl (Zofran) 4 mg IV NOW ONE Stop: 02/11/20 19:58 Last Admin: 02/11/20 20:10 Dose: 4 mg Documented by: ROGERS Vital Signs Vital signs: Vital Signs - 8 hr 02/11/20 19:20 02/11/20 20:00 Temperature 98.4 F Pulse Rate 99 H 81 Respiratory Rate 22 14 Blood Pressure 145/80 H Blood Pressure [Left Arm] 151/85 H Pulse Oximetry 99 99 MDM - Trauma Imaging Data Extremity x-ray #1: Radiologist's Impression: [address] [address] XRay Report Signed Patient: Alex Calloway DANYELLER#: [id number] : 1985Acct:[id number] Age/Sex: 34 / MDate of Service: 02/11/20 Loc: ED Accession Number: [id number] Procedure: XR shoulder RT min 2V Ordering Provider: Femi Brothers D.O. PROCEDURE: XR SHOULDER RT MIN 2V INDICATIONS: fall with shoulder pain TECHNIQUE: 2 views of the shoulder were acquired. COMPARISON: None. FINDINGS: Bones: There is widening of the acromioclavicular joint suggesting separation. No other fracture or dislocation visualized. Soft tissues: No suspicious soft tissue calcifications. IMPRESSION: Probable separation of the acromioclavicular joint. Dedicated clavicular views can be used to further characterize findings as clinically indicated. Dictated by: Marielle Martinez M.D. on 02/11/2020 at 20:09 Approved by: Marielle Martinez M.D. on 02/11/2020 at 20:10 CT scan - head: Radiologist's Impression: [address] [address] [address] Scan Report Signed Patient: Alex Calloway DANYELLER#: [id number] : 1985Acct:[id number] Age/Sex: 34 / MDate of Service: 02/11/20 Loc: ED Accession Number: [id number] Procedure: CT head/brain wo con Ordering Provider: Femi Brothers D.O. PROCEDURE: CT HEAD/BRAIN WO CON INDICATIONS: fall head injury TECHNIQUE: Noncontrast 4.5 mm thick angled axial sections acquired from the foramen magnum to the vertex, with coronal and sagittal reformats. For radiation dose reduction, the following was used: automated exposure control, adjustment of mA and/or kV according to patient size. COMPARISON: None. FINDINGS: Image quality: Excellent. CSF spaces: Basal cisterns are patent. No extra-axial fluid collections. Ventricles are normal in size and shape. Brain: No midline shift. No intracranial masses or hemorrhage. Kelly-white matter interface is normal. Skull and face: There is a small right parietal subgaleal hematoma. Calvarium and visualized facial bones are intact, without suspicious lesions. Sinuses: Visualized sinuses and mastoids are clear. IMPRESSION: 1. No acute intracranial findings. 2. Small right parietal subgaleal hematoma without underlying calvarial abnormality. Dictated by: Marielle Martinez M.D. on 02/11/2020 at 20:10 Approved by: Marielle Martinez M.D. on 02/11/2020 at 20:13 CT - cervical spine: Radiologist's Impression: [place] [address] CT Scan Report Signed Patient: Alex Calloway JMR#: [id number] : 1985Acct:[id number] Age/Sex: 34 / MDate of Service: 02/11/20 Loc: ED Accession Number: [id number] Procedure: CT cervical spine wo con Ordering Provider: Femi Brothers D.O. PROCEDURE: CT CERVICAL SPINE WO CON INDICATIONS: fall with head/neck pain TECHNIQUE: Noncontrast 3 mm thick sections acquired from the skull base to the T4 level. Sagittal and coronal reformats were then constructed. For radiation dose reduction, the following was used: automated exposure control, adjustment of mA and/or kV according to patient size. COMPARISON: None. FINDINGS: Image quality: Excellent. Bones: No fractures or dislocations. Visualized superior ribs are intact. Soft tissues: Prevertebral soft tissues are normal in thickness. No paravertebral hematomas. No apical pneumothoraces. IMPRESSION: No acute cervical spine injury. Dictated by: Marielle Martinez M.D. on 02/11/2020 at 20:13 Approved by: Marielle Martinez M.D. on 02/11/2020 at 20:14 Discharge Plan Departure Patient Disposition: Home Clinical Impression: Grade 3 separation of right shoulder Acute neck sprain Qualifiers: Encounter type: initial encounter Qualified Code(s): S13.9XXA - Sprain of joints and ligaments of unspecified parts of neck, initial encounter Hematoma of right parietal scalp Qualifiers: Encounter type: initial encounter Qualified Code(s): S00.03XA - Contusion of scalp, initial encounter Instructions: DI for Neck Sprain, AC Joint Separation Activity Restrictions/Additional Instructions: *You have been diagnosed with [right shoulder separation, neck sprain, scalp hematoma] *What to do: *Take medications as directed *Follow up with [facility], call for an appointment. Let them know you were seen in the Emergency Department and that we ask that you be seen in follow up *Return to ER if you should have any new, worsening or concerning symptoms, such as [increasing pain, numbness, tingling, weakness or other bothersome symptoms] Prescriptions: New hydrocodone-acetaminophen 5-325 mg tablet 1 tab PO Q4-6H PRN (Reason: pain) Qty: 10 RF: 0 ketorolac 10 mg tablet 10 mg PO Q6H PRN (Reason: pain) Qty: 14 RF: 0 No Action naproxen 500 mg tablet 500 mg PO BID PRN (Reason: pain) Qty: 60 RF: 1 ibuprofen 200 mg tablet 600 mg PO BID PRNRF: 0 amoxicillin-pot clavulanate 875-125 mg tablet 1 tab PO BID Qty: 10 RF: 0 Referrals: Zeeshan Lares ARNP [Primary Care Provider] - Drew Pizano MD [Physician] - Stand Alone Forms: Work Release Note
[2020-02-11 20:00] VITALS: BP 151/85; PULSE 81; RESP 14; O2SAT 99
[2020-02-11] MEDS: KETOROLAC 60 MG/2 ML VIAL 15 MG IV (20:10)
[2020-02-11] MEDS: ONDANSETRON 4 MG/2 ML INJ IV (20:10)
[2020-02-11] MEDS: HYDROMORPHONE 1 MG INJ IV (20:10)
[2020-02-11 21:02] VITALS: BP 132/88; PULSE 81; RESP 18; O2SAT 95
[2020-02-11] MEDS: HYDROCODONE/ACET 5/325 PREPACK 1 BOTTLE MISC (21:26)
[2020-02-11] MEDS: ONDANSETRON 4 MG ODT PREPACK 1 BOTTLE MISC (21:27)
== END 2020-02-11 21:34 | disposition home or self-care (01) ==
PROVIDERS: Emergency Provider Emergency Medicine; PCP Nurse Practitioner Family
DX: S43.084A Other dislocation of right shoulder joint, initial encounter (principal); S13.9XXA Sprain of joints and ligaments of unspecified parts of neck, initial encounter; S00.03XA Contusion of scalp, initial encounter; W20.8XXA Other cause of strike by thrown, projected or falling object, initial encounter; W03.XXXA Other fall on same level due to collision with another person, initial encounter; Y99.0 Civilian activity done for income or pay
CPT/HCPCS: 36415; 70450; 72125; 73030; 96374; 96375; 99284; J1170; J1885; J2405

== ENCOUNTER 2020-02-14 09:41 | Emergency (ER) | payer OTHER, SELFPAY ==
[2020-02-14 09:51] VITALS: BP 154/65; PULSE 70; RESP 14; TEMP 36.3; O2SAT 100; BMI 27.1
--- NOTE | 2020-02-14 11:50 | PC.NURSE ---
pt states he seperated his shoulder a couple days ago while chasing someone at work. Pt states he was given enough pain medication to get him through today, but ortho cannot see him until . Pt requesting additional pain medication to get him through to 's appointment.
--- NOTE | 2020-02-14 11:53 | ED_ITS ---
HPI - Extremity Injury (Upper) <GERARDO Jeong - Last Filed: 02/14/20 21:56> General Chief Complaint: Extremity Injury, Upper Stated Complaint: Out of Medication Left arm still hurts. Time Seen by Provider: 02/14/20 11:46 Source: patient Mode of arrival: Ambulatory Limitations: no limitations History of Present Illness HPI narrative: 34yo Male returns emergency department for right shoulder pain. Patient was seen on 02/11/2020 and diagnosed with a Grade 3 separation of R shoulder. He has been taking Vicodin at home, he has a follow-up appointment with an orthopedic on 02/16/2020. Patient reports increased pain as he has ran out of the Vicodin script that he has been given. Patient did call the orthopedic office and was told in order to refill medications he needs to be see n. Patient has with his PCP appointment on on February 25. Patient denies any further trauma, numbness, tingling, fevers, chills, nausea, vomiting, diarrhea, or any other concerns. Related Data Home Medications Medication Instructions Recorded Confirmed ibuprofen 200 mg tablet 600 mg PO BID PRN tab 05/10/19 01/20/20 Previous Rx's Medication Instructions Recorded naproxen 500 mg tablet 500 mg PO BID PRN #60 tab 01/11/19 amoxicillin 875 mg-potassium 1 tab PO BID #10 tab 01/20/20 clavulanate 125 mg tablet hydrocodone-acetaminophen 1 tab PO Q4-6H PRN #10 tab 02/11/20 ketorolac 10 mg PO Q6H PRN #14 tab 02/11/20 hydrocodone-acetaminophen [[place]] 1 tab PO Q4-6H PRN #14 tab 02/14/20 ondansetron 4 mg PO Q8H PRN #14 tab 02/14/20 Allergies Allergy/AdvReac Type Severity Reaction Status Date / Time No Known Drug Allergies Allergy Verified 01/20/20 15:19 Review of Systems <GERARDO Jeong - Last Filed: 02/14/20 21:56> Review of Systems Narrative: REVIEW OF SYSTEMS: GENERAL: Denies fever or chills. HENT: No head trauma. CARDIOVASCULAR: No chest pain or syncope. RESPIRATORY: No shortness of breath or cough. GASTROINTESTINAL: Reports intermittent nausea with medication, see HPI. MUSCULOSKELETAL: Complains of right shoulder pain, see HPI. INTEGUMENTARY: No rash, lesions, or pruritus. NEURO: No numbness, tingling. Patient History <GERARDO Jeong - Last Filed: 02/14/20 21:56> Medical History Back problem (Chronic ~2007) Chicken pox (Resolved ~1986) Chronic back pain (Chronic ~2007) Eczema (Chronic ~2007) Hay fever (Chronic ~1989) Hearing loss (Chronic ~2009) Herniated disc (Chronic ~2007) Lesion of right external auditory canal (Acute) Plantar warts (Chronic ~2009) Tinnitus (Chronic ~2009) Vision disorder (Chronic) Surgical History History of vasectomy (Resolved ~08/2015) Family History Father Mental health problem Grandfather Prostate cancer Family/Other Mental health problem Social History Smoking Status: Never smoker second hand exposure: Yes alcohol intake: current substance use type: does not use Smoking Status: Never smoker alcohol intake frequency: holidays/special occasions only Substance Use Type: does not use Exam <GERARDO Jeong - Last Filed: 02/14/20 21:56> Initial Vital Signs Initial Vital Signs: Vital Signs Temperature 97.4 F L 02/14/20 09:51 Pulse Rate 70 02/14/20 09:51 Respiratory Rate 14 02/14/20 09:51 Blood Pressure 154/65 H 02/14/20 09:51 Pulse Oximetry 100 02/14/20 09:51 PHYSICAL EXAMINATION: GENERAL: Well groomed, alert, and cooperative. Answers questions promptly and appropriately. Vital signs noted. HENT: Normocephalic, atraumatic. EYES: Symmetrical, sclera white, no periorbital swelling. CARDIOVASCULAR: Regular rate. RESPIRATORY: Normal respiratory rate, trachea midline, airway patent. No stridor, nasal flaring or accessory muscle use. MUSCULOSKELETAL: Tenderness to right shoulder, decreased range of motion due to pain. EXTREMITIES: CMS intact. No pedal edema. SKIN: Warm, dry, soft, appropriate color for ethnicity. No lesions, rashes, or wounds. NEURO: Alert and Oriented X 3. No sensory deficits. PSYCH: Appropriate affect and mood. <Jorge Reyes MD - Last Filed: 02/24/20 07:39> Initial Vital Signs Initial Vital Signs: Vital Signs Temperature 97.4 F L 02/14/20 09:51 Pulse Rate 70 02/14/20 09:51 Respiratory Rate 14 02/14/20 09:51 Blood Pressure 154/65 H 02/14/20 09:51 Pulse Oximetry 100 02/14/20 09:51 Course <GERARDO Jeong - Last Filed: 02/14/20 21:56> Vital Signs Vital signs: Vital Signs - 8 hr 02/14/20 09:51 Temperature 97.4 F L Pulse Rate 70 Respiratory Rate 14 Blood Pressure 154/65 H Pulse Oximetry 100 <Jorge Reyes MD - Last Filed: 02/24/20 07:39> Vital Signs Vital signs: Vital Signs - 8 hr 02/14/20 09:51 Temperature 97.4 F L Pulse Rate 70 Respiratory Rate 14 Blood Pressure 154/65 H Pulse Oximetry 100 MDM - Extremity Injury (Upper) <GERARDO Jeong - Last Filed: 02/14/20 21:56> Medical Records Attestation: I reviewed the patient's medical records. Lab Data Attestation: I reviewed the patient's lab results. MDM Narrative Medical decision making narrative: 34-year-old male presents emergency department for right shoulder pain, was recently diagnosed with grade 3 separation of right shoulder. Has been taking Vicodin, reports increased pain since taking the less bili few days ago. As an ortho appointment scheduled for . No further trauma, no significant swelling. Patient was given a prescription for Vicodin and Zofran to help with pain. He was encouraged to keep appointment as scheduled. Return precautions given for new or worsening symptoms. Patient agreed to plan of care verbalized understanding. Discharge Plan Departure Patient Disposition: Home Clinical Impression: Grade 3 separation of right shoulder Discharge Date/Time: 02/14/20 12:18 Activity Restrictions/Additional Instructions: Thank you for entrusting me with your care today. As discussed, keep your orthopedic appointment as scheduled on . You have been prescribed a narcotic medication, this medication can make you drowsy. Do not drive while using this medication or perform activities that require mental alertness. These medications can also make you constipated, please use [id number] docusate sodium as needed for constipation. You have also been prescribed a nausea medication. Your prescriptions were sent to [facility]. Return emergency department for any new or worsening symptoms such as numbness and tingling, chest pain, shortness of breath, or any other concerns. Prescriptions: New hydrocodone-acetaminophen [[place]] 5-325 mg tablet 1 tab PO Q4-6H PRN (Reason: pain) Qty: 14 RF: 0 ondansetron 4 mg tablet,disintegrating 4 mg PO Q8H PRN (Reason: nausea and vomiting) Qty: 14 RF: 0 No Action naproxen 500 mg tablet 500 mg PO BID PRN (Reason: pain) Qty: 60 RF: 1 ibuprofen 200 mg tablet 600 mg PO BID PRNRF: 0 amoxicillin-pot clavulanate 875-125 mg tablet 1 tab PO BID Qty: 10 RF: 0 hydrocodone-acetaminophen 5-325 mg tablet 1 tab PO Q4-6H PRN (Reason: pain) Qty: 10 RF: 0 ketorolac 10 mg tablet 10 mg PO Q6H PRN (Reason: pain) Qty: 14 RF: 0 Referrals: Zeeshan Lares ARNP [Primary Care Provider] -
== END 2020-02-14 12:18 | disposition home or self-care (01) ==
PROVIDERS: Emergency Provider Nurse Practitioner; PCP Nurse Practitioner Family
DX: Z76.0 Encounter for issue of repeat prescription (principal); Y99.0 Civilian activity done for income or pay
CPT/HCPCS: 99281

== ENCOUNTER → 2020-03-15 16:14 | Outpatient (CLI) | payer OTHER, SELFPAY ==
--- NOTE | 2020-03-15 16:17 | DI.MRI.S_ITS ---
PROCEDURE: MR SHOULDER RT WO CON INDICATIONS: UNSPECIFIED OF RIGHT ACROMIOCLAVICULAR TECHNIQUE: Noncontrast oblique coronal T2 fast spin echo with fat saturation, oblique sagittal T1 spin echo and T2 fast spin echo with fat saturation, axial T1 spin echo and T2 fast spin echo with fat saturation through the shoulder. COMPARISON: [facility] [place], CR, XR CLAVICLE RIGHT, 02/16/2020, 9:07. FINDINGS: Image quality: Excellent. Rotator cuff: Infraspinatus mild tendinopathy and low-grade bursal surface fraying. Supraspinatus and teres minor are intact. Subscapularis tendon intact. Fatty infiltration of the infraspinatus muscle Bones and bursae: No bone marrow contusions or fractures. There is muscle edema involving the teres minor and latissimus dorsi. This is only partially visualized. Superior subluxation of the clavicle relative to the acromion. There is also widening of the AC joint. The superior and inferior AC ligaments are not well visualized and presumably ruptured. Coracoclavicular ligament also not well-seen. Joint effusion noted. Acromion demonstrates conventional anatomy, without an os acromiale. Trace subacromial-subdeltoid bursitis. Capsule and soft tissues: Labrum: Superior labral fraying. There is incidental superior sublabral sulcus. Mild fraying of the posterior and smith-inferior (image 16/6) labrum without discrete tear or intrasubstance fluid signal intensity Long head of the biceps tendon intact. The rotator interval appears normal, without fibrosis. Coracohumeral ligament intact. IMPRESSION: Infraspinatus tendinopathy with low-grade bursal surface fraying. Superior displacement of the clavicle relative to acromion in keeping with acute AC separation. Acromioclavicular and coracoclavicular ligaments appear ruptured. Associated soft tissue edema Acute strain of the teres minor and latissimus dorsi muscles. Dictated by: Thomas Hall M.D. on 03/16/2020 at 8:51 Approved by: Thomas Hall M.D. on 03/16/2020 at 9:13
== END ==
PROVIDERS: PCP Nurse Practitioner Family; Referring Provider Orthopaedic Surgery; Visit Provider Orthopaedic Surgery
DX: S43.101A Unspecified dislocation of right acromioclavicular joint, initial encounter (principal)
CPT/HCPCS: 73221

== ENCOUNTER → 2020-12-25 16:06 | Outpatient (CLI) | payer OTHER, SELFPAY ==
[2020-12-25 16:33] LABS: COVID19 -Nasal RAPID Negative (Negative)
== END ==
PROVIDERS: PCP Nurse Practitioner Family; Visit Provider Nurse Practitioner Family
DX: Z20.822 Contact with and (suspected) exposure to COVID-19 (principal)
CPT/HCPCS: 87635

== ENCOUNTER → 2021-01-12 11:59 | Outpatient (CLI) | payer OTHER, SELFPAY ==
[2021-01-12 12:15] LABS: Add Manual Diff / Slide Review NO; Basophils Absolute Auto 0 /uL (0-100); Basophils Percent Auto 0.8 % (0-2); Eosinophils Absolute Auto 200 /uL (0-450); Eosinophils Percent Auto 3.7 % (2-4); Hematocrit 42.8 % (41-53); Lymphocytes Absolute Auto 1700 /uL (1100-4500); Lymphocytes Percent Auto 32.2 % (25-40); Mean Corpuscular Hemoglobin 31.7 PG (26-34); Mean Corpuscular Volume 90.5 fL (80-100); Monocytes Absolute Auto 600 /uL (0-900); Monocytes Percent Auto 10.5 % (3-14); Neutrophils Absolute Auto 2800 /uL (1500-7000); Neutrophils Percent Auto 52.8 % (50-75); Platelet Count 223 X10^3/uL (150-400); Red Blood Cell Count 4.73 X10^6/uL (4.5-5.9); Red Cell Distribution Width 12.8 % (11.6-14.8); White Blood Cell Count 5.3 X10^3/uL (4.5-11.0)
[2021-01-12 12:45] LABS: Alanine Aminotransferase 28 IU/L (<50); Albumin 4.9 g/dL (3.5-5.0); Albumin Globulin Ratio 1.8 (1.0-2.8); Alkaline Phosphatase 87 U/L (38-126); Aspartate Aminotransferase 36 IU/L (17-59); BUN Creatinine Ratio 14.3 (6-22); Bilirubin Total 0.5 mg/dL (0.2-1.3); Blood Urea Nitrogen 14 mg/dL (9-20); Calcium 9.9 mg/dL (8.4-10.2); Carbon Dioxide 29 mmol/L (22-32); Chloride 98 mmol/L (98-107); Cholesterol 175 mg/dL (140-199); Estimated Glomerular Filt Rate > 60.0 mL/min (>60); Globulin 2.8 g/dL (1.7-4.1); Glucose 92 mg/dL (70-100); HDL Cholesterol 59 mg/dL (40-60); HEMOLYSIS < 15 (0-50); LDL Cholesterol Calculated 70 mg/dL (<100); Potassium 4.4 mmol/L (3.4-5.1); Sodium 137 mmol/L (137-145); Total Protein 7.7 g/dL (6.3-8.2); Triglycerides 232 mg/dL (35-150)
[2021-01-12 13:13] LABS: TSH w/ Reflex to FT4 1.26 uIU/mL (0.47-4.68)
[2021-01-12 13:14] LABS: Prostate Specific Antigen Scrn 1.49 ng/mL (0.1-4.0)
[2021-01-12 14:28] LABS: Urine N gonorrhoeae NOT DETECTED
[2021-01-12 14:33] LABS: Urine Chlamydia NOT DETECTED
== END ==
PROVIDERS: PCP Nurse Practitioner Family; Referring Provider Physician Assistant; Visit Provider Physician Assistant
DX: Z00.00 Encounter for general adult medical examination without abnormal findings (principal); Z13.6 Encounter for screening for cardiovascular disorders; Z12.5 Encounter for screening for malignant neoplasm of prostate; R53.83 Other fatigue; R30.0 Dysuria
CPT/HCPCS: 36415; 80053; 80061; 84443; 85025; 87086; 87491; 87591; G0103

== ENCOUNTER → 2021-04-13 15:25 | Outpatient (CLI) | payer OTHER, SELFPAY ==
--- NOTE | 2021-04-13 15:26 | DI.RAD.S_ITS ---
PROCEDURE: XR HAND LT MIN 3V INDICATIONS: left hand pain TECHNIQUE: 3 views of the hand(s) acquired. COMPARISON: [facility], [place], XR HAND LT MIN 3V, 05/09/2019, 20:24. FINDINGS: Bones: No fractures or dislocations. Carpal bones are normally aligned. No suspicious bony lesions. Soft tissues: No suspicious soft tissue calcifications. IMPRESSION: Negative for displaced fracture. Dictated by: Steve Mac M.D. on 04/13/2021 at 14:52 Approved by: Steve Mac M.D. on 04/13/2021 at 14:52
== END ==
PROVIDERS: PCP Nurse Practitioner Family; Referring Provider Physician Assistant; Visit Provider Physician Assistant
DX: M79.642 Pain in left hand (principal)
CPT/HCPCS: 73130

== ENCOUNTER → 2023-02-23 09:28 | Outpatient (CLI) | payer OTHER, SELFPAY ==
[2023-02-23 10:13] LABS: Hematocrit 44.1 % (41-53); Hemoglobin 15.4 g/dL (13.5-17.5); Mean Corpuscular HGB Conc 34.9 % (30-36); Mean Corpuscular Hemoglobin 31.4 PG (26-34); Mean Corpuscular Volume 90.1 fL (80-100); Platelet Count 228 X10^3/uL (150-400); Red Cell Distribution Width 12.7 % (11.6-14.8); White Blood Cell Count 4.7 X10^3/uL (4.5-11.0)
[2023-02-23 10:41] LABS: Alanine Aminotransferase 35 IU/L (<50); Albumin 4.5 g/dL (3.5-5.0); Albumin Globulin Ratio 1.6 (1.0-2.8); Alkaline Phosphatase 76 U/L (38-126); Aspartate Aminotransferase 34 IU/L (17-59); BUN Creatinine Ratio 11.4 (6-22); Bilirubin Total 0.6 mg/dL (0.2-1.3); Blood Urea Nitrogen 14 mg/dL (9-20); Calcium 9.4 mg/dL (8.4-10.2); Carbon Dioxide 33 mmol/L (22-32); Chloride 99 mmol/L (98-107); Estimated Glomerular Filt Rate > 60 mL/min (>60); Globulin 2.8 g/dL (1.7-4.1); Glucose 89 mg/dL (70-100); Potassium 4.5 mmol/L (3.4-5.1); Sodium 139 mmol/L (137-145); Total Protein 7.3 g/dL (6.3-8.2); Triglycerides 93 mg/dL (35-150)
[2023-02-23 10:50] LABS: Vitamin D 25 Hydroxy (D3) 37.2 ng/mL (30.0-100.0)
[2023-02-23 11:31] LABS: HEMOLYSIS < 15 (0-50); Vitamin B12 383 pg/mL (239-931)
[2023-02-23 17:46] LABS: Hep C Virus Ab w/Reflex Quant NEGATIVE s/c (NEGATIVE)
== END ==
PROVIDERS: PCP Student in an Organized Health Care Education/Training Program; Referring Provider Student in an Organized Health Care Education/Training Program; Visit Provider Student in an Organized Health Care Education/Training Program
DX: F32.9 Major depressive disorder, single episode, unspecified (principal); F32.1 Major depressive disorder, single episode, moderate; F41.9 Anxiety disorder, unspecified; E78.1 Pure hyperglyceridemia; E55.9 Vitamin D deficiency, unspecified; Z11.59 Encounter for screening for other viral diseases; Z91.89 Other specified personal risk factors, not elsewhere classified
CPT/HCPCS: 36415; 80053; 82306; 82607; 84478; 85027; 86803

== ENCOUNTER → 2023-03-17 17:29 | Outpatient (CLI) | payer OTHER, SELFPAY ==
--- NOTE | 2023-03-17 17:30 | DI.RAD.S_ITS ---
PROCEDURE: XR HAND LT MIN 3V INDICATIONS: Left hand pain in 5th Metacarpal TECHNIQUE: 3 views of the hand(s) acquired. COMPARISON: [facility], [facility]ST[facility], XR HAND LT MIN 3V, 04/13/2021, 15:23. FINDINGS: Bones: No fractures or dislocations. Carpal bones are normally aligned. No suspicious bony lesions. Soft tissues: No suspicious soft tissue calcifications. IMPRESSION: No gross acute left hand fracture or dislocation is seen. Dictated by: Robert Huerta M.D. on 03/17/2023 at 17:43 Approved by: Robert Huerta M.D. on 03/17/2023 at 17:44
== END ==
PROVIDERS: PCP Student in an Organized Health Care Education/Training Program; Referring Provider Physician Assistant; Visit Provider Physician Assistant
DX: M79.642 Pain in left hand (principal)
CPT/HCPCS: 73130

== ENCOUNTER 2024-05-12 15:56 | Emergency (ER) | payer OTHER, SELFPAY ==
[2024-05-12 16:04] VITALS: BP 141/83; PULSE 87; RESP 16; TEMP 37; O2SAT 97; BMI 27.9
--- NOTE | 2024-05-12 16:09 | DI.RAD.S_ITS ---
PROCEDURE: XR ANKLE LT MIN 3V INDICATIONS: pain/felt a pop after rolling ankle TECHNIQUE: 3 views of the ankle were acquired. COMPARISON: None. FINDINGS: Bones: No acute displaced fracture or dislocation. Small nonacute bone fragment adjacent to the talonavicular joint. Soft tissues: Soft tissue swelling. IMPRESSION: No acute radiographic abnormality. If there is high concern for occult injury, consider repeat radiography or cross-sectional imaging. Soft tissue swelling is present, possibly representing ligamentous injury. Dictated by: Gasper Blanchard M.D. on 05/12/2024 at 17:06 Approved by: Gasper Blanchard M.D. on 05/12/2024 at 17:08
--- NOTE | 2024-05-12 16:37 | ED.LOWEXIN ---
HPI - Extremity Injury (Lower) General Chief Complaint: Extremity Injury, Lower Stated Complaint: Rolled L Ankle Time Seen by Provider: 05/12/24 16:36 Source: patient Mode of arrival: Ambulatory History of Present Illness HPI Narrative: 38-year-old male here for evaluation of a left ankle injury. Patient states that last evening he rolled his left ankle. Has had swelling and pain in the outside and left ankle since then. Also having swelling. He has been ambulatory. No fevers. No other injuries from the event. Related Data Home Medications Medication Instructions Recorded Confirmed naproxen sodium 220 mg tablet 220 mg PO BID PRN 05/08/22 12/28/23 (Flanax (naproxen)) Previous Rx's Medication Instructions Recorded albuterol sulfate 90 mcg/actuation 1 - 2 inh inhalation Q4-6H PRN 07/22/23 aerosol inhaler shortness of breath or wheezing #8.5 grams bupropion HCl 150 mg 24 hr tablet, 150 mg PO QAM #90 tabs 09/07/23 extended release fluoxetine 20 mg capsule (Prozac) 20 mg PO DAILY #90 caps 09/16/23 clonazepam 0.5 mg tablet 0.5 mg PO DAILY PRN severe anxiety 04/26/24 or panic attacks #30 tabs Allergies Allergy/AdvReac Type Severity Reaction Status Date / Time No Known Drug Allergies Allergy Verified 12/28/23 07:36 Review of Systems Musculoskeletal Musculoskeletal: Reports system reviewed and no additional complaints, except as documented Integumentary/Breasts Skin/Breast: Reports system reviewed and no additional complaints, except as documented Neurologic Neurologic: Reports system reviewed and no additional complaints, except as documented Patient History Medical History Separation of AC joint Arthritis of finger of right hand Anxiety Bilateral tinnitus Snoring Hypertriglyceridemia (01/2021) Depression Vision disorder Eczema (~2007) Hay fever (~1989) Herniated disc (~2007) Chicken pox (~1986) Hearing loss (~2009) Surgical History History of vasectomy (~08/2015) Family History Father Mental health problem Grandfather Prostate cancer Family/Other Mental health problem Social History Smoking Status: Never smoker second hand exposure: Yes alcohol intake: current (1 drink per day ) substance use type: does not use Smoking Status: Never smoker alcohol intake frequency: a few times a week Substance Use Type: does not use Exam Initial Vital Signs Initial Vital Signs: Vital Signs Temperature 98.6 F 05/12/24 16:04 Pulse Rate 87 05/12/24 16:04 Respiratory Rate 16 05/12/24 16:04 Blood Pressure 141/83 H 05/12/24 16:04 Pulse Oximetry 97 05/12/24 16:04 Oxygen Delivery Method Room Air 05/12/24 16:04 Cardio Pulses: dorsalis pedis present on the left Skin Other: Bruising along the lateral aspect of the left ankle under the lateral malleolus Neuro Sensory Exam: no sensory deficits noted Extrem Other: No proximal fibula tenderness. Achilles tendon is intact. No tenderness along the base of the 5th metatarsal. No tenderness along the midfoot. No tenderness along the medial malleolus. Tenderness posterior to the lateral malleolus. He was able to flex and extend both some discomfort. Course Orders Ordered: ED Orders 05/12/24 16:09 XR ankle LT min 3V Stat Vital Signs Vital signs: Vital Signs - 8 hr 05/12/24 16:04 Temperature 98.6 F Pulse Rate 87 Respiratory Rate 16 Blood Pressure 141/83 H Pulse Oximetry 97 Oxygen Delivery Method Room Air MDM - Extremity Injury (Lower) Imaging Data Extremity x-ray #1: My Impression: No fractures no dislocations noted MDM Narrative Medical decision making narrative: No fractures noted on the x-ray does have bruising posterior and inferior to the lateral malleolus. Neurovascularly intact. He was placed in an Dennis bandage for comfort. Discussed return precautions and follow-up instructions. He expressed understanding and agreement. Discharge Plan Departure Patient Disposition: Home Clinical Impression: Left ankle sprain Instructions: DI for Ankle Sprain, How To Perform RICE (Rest, Ice, Compress, Elevate), How to Apply an Elastic Wrap on Ankle Activity Restrictions/Additional Instructions: No fractures are noted on the x-rays today. You can expect some worsening swelling and bruising over the next couple days. This should improve with time. I do recommend that you use the elastic bandage as needed for comfort. Try to keep your leg elevated. Return to the emergency department for new or worsening symptoms. Prescriptions: No Action bupropion HCl 150 mg tablet extended release 24 hr 150 mg PO QAM Qty: 90 3RF naproxen sodium [Flanax (naproxen)] 220 mg tablet 220 mg PO BID PRN fluoxetine [Prozac] 20 mg capsule 20 mg PO DAILY Qty: 90 3RF albuterol sulfate 90 mcg/actuation HFA aerosol inhaler 1 - 2 inh inhalation Q4-6H PRN (Reason: shortness of breath or wheezing) Qty: 8.5 11RF clonazepam 0.5 mg tablet 0.5 mg PO DAILY PRN (Reason: severe anxiety or panic attacks) Qty: 30 5RF Rx Instructions: Limit use as possible. Watch for sedation. Referrals: Last Sapp DO [Primary Care Provider] - Stand Alone Forms: Patient Portal/API, Work Release Note
[2024-05-12 16:46] VITALS: BP 138/72; PULSE 73; RESP 16; O2SAT 99
== END 2024-05-12 16:47 | disposition home or self-care (01) ==
PROVIDERS: Emergency Provider Emergency Medicine; PCP Family Medicine
DX: S93.402A Sprain of unspecified ligament of left ankle, initial encounter (principal); X50.1XXA Overexertion from prolonged static or awkward postures, initial encounter
CPT/HCPCS: 73610; 99281; 99283